=== PATIENT | female | born 1950 | race Caucasian/White ===

== ENCOUNTER 2020-08-15 20:36 | Inpatient (IN) ==
[2020-08-15] MEDS ORDERED: SODIUM CHLORIDE 0.9% 500 ML IV STA (21:01)
[2020-08-15] MEDS ORDERED: ONDANSETRON 4 MG/2 ML VIAL IV STA (21:01)
[2020-08-15] MEDS ORDERED: HYDROmorphone 2 MG/1 ML VIAL IV ONE (21:03)
[2020-08-15] MEDS ORDERED: KETOROLAC 30 MG/1 ML VIAL IV STA (21:04)
[2020-08-15 21:24] LABS: Basophils # 0.1 10*3/uL (0.0-0.2); Basophils % 0.5 % (0.0-0.8); Eosinophils # 0.1 10*3/uL (0.0-0.87); Eosinophils % 1.4 % (0.00-10.9); Hemoglobin 9.8 GM/DL (12.0-16.0); Immature Granulocytes % 0.5 %; Immature Granulocytes Absolute 0.05 #; Lymphocytes # 2.2 10*3/uL (1.4-4.0); Lymphocytes % 24.1 % (21.3-54.2); Mean Corpuscular HGB Conc 32.7 GM/DL (32-36); Mean Platelet Volume 9.5 FL (9.6-12.0); Monocytes % 13.4 % (1.7-12.7); Neutrophils % 60.1 % (38.7-73.9); Platelet Count 55 T/CUMM (130-400); Red Blood Count 3.45 MC/CUMM (3.8-5.5); Red Cell Distribution Width 15.9 % (9.3-17.3); White Blood Count 9.3 T/CUMM (4-12)
[2020-08-15 22:04] LABS: Bacteria,Urine Occasional /HPF (Few); Bilirubin,Urine Negative (Negative); Blood, Urine Large mg/dL (Negative); Glucose,Urine (UA) >=500 mg/dL (Negative); Ketones,Urine Negative (Negative); Mucus,Urine Moderate /LPF (Occasional); Nitrite,Urine Negative (Negative); Protein,Urine 30 MG/DL; RBC,Urine 1471 /HPF (0-4); Squamous Epithelial Cell,Urine Occasional /HPF (0-10); Urine Appearance Slightly Hazy (Clear); Urine Color Amber (Yellow); Urine Specific Gravity 1.017 (1.001-1.035)
[2020-08-15 22:05] LABS: Alanine Aminotransferase 35 U/L (13-56); Albumin 2.8 G/DL (3.4-5.0); Alkaline Phosphatase 95 U/L (45-117); Amylase 72 U/L (25-115); Aspartate Amino Transferase 85 U/L (0-37); Blood Urea Nitrogen 14 MG/DL (7-18); Calcium 8.4 MG/DL (8.5-10.1); Carbon Dioxide 18 MMOL/L (21-32); Estimated Glom Filtration Rate 56 ML/MIN; Glucose 88 MG/DL (74-106); Osmolality,Calculated 263.5 MOS/KG (273-304); Potassium 4.6 MMOL/L (3.5-5.1); Sodium 132 MMOL/L (136-145)
[2020-08-15] MEDS ORDERED: cefTRIAXone 2,000 MG in SODIUM CHLORIDE 0.9% 100 ML IV STA (23:18)
[2020-08-15] MEDS: SODIUM CHLORIDE 0.9% 1,000 ML IV SCH (23:46)
[2020-08-15] MEDS ORDERED: LACTULOSE 20 GM/30 ML UDCUP PO PRN (23:53)
[2020-08-15] MEDS ORDERED: GLUCAGON 1 MG VIAL IM PRN (23:53)
[2020-08-15] MEDS ORDERED: DEXTROSE 50% 25 GM/50 ML VIAL IV PRN (23:53)
[2020-08-15] MEDS ORDERED: MORPHINE 4 MG/1 ML VIAL IV PRN (23:53)
[2020-08-16] MEDS ORDERED: DEXTROSE 50% 25 GM/50 ML VIAL IV PRN (00:25)
[2020-08-16] MEDS: ONDANSETRON 4 MG/2 ML VIAL IV PRN ×2 (02:18→08:22)
[2020-08-16 02:45] LABS: Basophils # 0.1 10*3/uL (0.0-0.2); Basophils % 0.7 % (0.0-0.8); Eosinophils # 0.1 10*3/uL (0.0-0.87); Hematocrit 30.7 VOL% (35.7-47.0); Hemoglobin 10.3 GM/DL (12.0-16.0); Immature Granulocytes % 0.5 %; Immature Granulocytes Absolute 0.05 #; Lymphocytes # 1.7 10*3/uL (1.4-4.0); Lymphocytes % 16.5 % (21.3-54.2); Mean Corpuscular HGB Conc 33.6 GM/DL (32-36); Mean Platelet Volume 9.8 FL (9.6-12.0); Monocytes % 12.7 % (1.7-12.7); Neutrophils % 68.6 % (38.7-73.9); Platelet Count 111 T/CUMM (130-400); Red Blood Count 3.53 MC/CUMM (3.8-5.5); Red Cell Distribution Width 15.9 % (9.3-17.3); White Blood Count 10.2 T/CUMM (4-12)
[2020-08-16 02:58] LABS: INR 1.3; PT Patient Result 14.2 SECS (10.5-12.0); Partial Thromboplastin Time 30.2 SECS (23.9-33.8)
[2020-08-16 03:13] LABS: Calcium 8.5 MG/DL (8.5-10.1); Osmolality,Calculated 263.7 MOS/KG (273-304); Potassium 4.5 MMOL/L (3.5-5.1)
[2020-08-16] MEDS: INSULIN LISPRO 100 UNIT/ML SUBCUT SCH ×4 (08:03→20:27)
[2020-08-16] MEDS: cefTRIAXone 1,000 MG in SODIUM CHLORIDE 0.9% 100 ML IV SCH (08:21)
[2020-08-16] MEDS: SPIRONOLACTONE 100 MG TABLET PO SCH (08:21)
[2020-08-16] MEDS ORDERED: PANTOPRAZOLE 40 MG TABLET PO SCH (09:00)
[2020-08-16] MEDS ORDERED: FUROSEMIDE 40 MG TABLET PO SCH (09:00)
[2020-08-16] MEDS: SODIUM CHLORIDE 0.9% 1,000 ML IV SCH ×2 (09:43→21:20)
[2020-08-16] MEDS: PROMETHAZINE 25 MG/1 ML VIAL IM PRN (11:08)
[2020-08-16] MEDS ORDERED: MORPHINE 2 MG/1 ML SYRINGE IV PRN (14:04)
[2020-08-16] MEDS: PANTOPRAZOLE 40 MG TABLET PO SCH (16:47)
[2020-08-17] MEDS: SODIUM CHLORIDE 0.9% 1,000 ML IV SCH ×2 (06:55→21:11)
[2020-08-17 07:16] LABS: Osmolality,Calculated 276.5 MOS/KG (273-304); Potassium 3.8 MMOL/L (3.5-5.1)
[2020-08-17] MEDS: INSULIN LISPRO 100 UNIT/ML SUBCUT SCH ×4 (08:09→21:14)
[2020-08-17] MEDS: SPIRONOLACTONE 100 MG TABLET PO SCH (08:55)
[2020-08-17] MEDS: PANTOPRAZOLE 40 MG TABLET PO SCH ×2 (08:55→17:09)
[2020-08-17] MEDS: cefTRIAXone 1,000 MG in SODIUM CHLORIDE 0.9% 100 ML IV SCH (08:59)
[2020-08-17] MEDS: ONDANSETRON 4 MG/2 ML VIAL IV PRN ×2 (09:02→21:15)
[2020-08-17] MEDS: METOCLOPRAMIDE 10 MG/10 ML UDCUP PO SCH ×2 (13:30→17:09)
[2020-08-17] MEDS: PROMETHAZINE 25 MG/1 ML VIAL IM PRN (13:40)
[2020-08-17] MEDS: LACTULOSE 20 GM/30 ML UDCUP PO SCH (21:11)
[2020-08-18] MEDS: ONDANSETRON 4 MG/2 ML VIAL IV PRN (05:05)
[2020-08-18 05:09] LABS: Basophils # 0.1 10*3/uL (0.0-0.2); Basophils % 1.2 % (0.0-0.8); Eosinophils # 0.3 10*3/uL (0.0-0.87); Eosinophils % 2.6 % (0.00-10.9); Hematocrit 31.4 VOL% (35.7-47.0); Hemoglobin 10.1 GM/DL (12.0-16.0); Immature Granulocytes % 0.4 %; Immature Granulocytes Absolute 0.04 #; Lymphocytes % 29.1 % (21.3-54.2); Mean Corpuscular HGB Conc 32.2 GM/DL (32-36); Mean Corpuscular Volume 89.2 FL (87-102); Mean Platelet Volume 9.3 FL (9.6-12.0); Monocytes % 13.5 % (1.7-12.7); Neutrophils % 53.2 % (38.7-73.9); Platelet Count 151 T/CUMM (130-400); Red Blood Count 3.52 MC/CUMM (3.8-5.5); Red Cell Distribution Width 16.2 % (9.3-17.3); White Blood Count 10.2 T/CUMM (4-12)
[2020-08-18 05:34] LABS: Calcium 8.2 MG/DL (8.5-10.1); Osmolality,Calculated 278.4 MOS/KG (273-304); Potassium 4.1 MMOL/L (3.5-5.1)
[2020-08-18] MEDS: SODIUM CHLORIDE 0.9% 1,000 ML IV SCH (06:10)
[2020-08-18 07:44] VITALS: BP 117/39
[2020-08-18] MEDS: INSULIN LISPRO 100 UNIT/ML SUBCUT SCH (07:57)
[2020-08-18] MEDS: PANTOPRAZOLE 40 MG TABLET PO SCH (08:38)
[2020-08-18] MEDS: SPIRONOLACTONE 100 MG TABLET PO SCH (08:38)
[2020-08-18] MEDS: LACTULOSE 20 GM/30 ML UDCUP PO SCH (08:39)
[2020-08-18] MEDS ORDERED: CEFUROXIME 500 MG TABLET PO SCH (09:00)
[2020-08-18] MEDS ORDERED: LIDOCAINE 5% PATCH TRANSDERM SCH (10:30)
== END 2020-08-18 10:15 | disposition home or self-care (01) | DRG 694 ==
LOC: N.ED 20:36 → N.EDINP 23:53 → N.3E 08-16 01:15
PROVIDERS: ADMIT Internal Medicine; ATTEND Internal Medicine

== ENCOUNTER 2020-09-20 19:25 | Observation (INO) ==
[2020-09-20 19:58] LABS: Basophils % 0.6 % (0.0-0.8); Eosinophils # 0.1 10*3/uL (0.0-0.87); Eosinophils % 1.2 % (0.00-10.9); Hematocrit 31.7 VOL% (35.7-47.0); Hemoglobin 10.2 GM/DL (12.0-16.0); Immature Granulocytes % 0.4 %; Immature Granulocytes Absolute 0.03 #; Lymphocytes # 1.4 10*3/uL (1.4-4.0); Lymphocytes % 19.1 % (21.3-54.2); Mean Corpuscular HGB Conc 32.2 GM/DL (32-36); Mean Corpuscular Volume 87.8 FL (87-102); Mean Platelet Volume 8.7 FL (9.6-12.0); Monocytes % 12.4 % (1.7-12.7); Neutrophils % 66.3 % (38.7-73.9); Platelet Count 122 T/CUMM (130-400); Red Blood Count 3.61 MC/CUMM (3.8-5.5); Red Cell Distribution Width 15.3 % (9.3-17.3); White Blood Count 7.2 T/CUMM (4-12)
[2020-09-20 20:10] LABS: INR 1.3; PT Patient Result 14.6 SECS (10.5-12.0); Partial Thromboplastin Time 28.5 SECS (23.9-33.8)
[2020-09-20 20:25] LABS: Calcium 8.4 MG/DL (8.5-10.1); Osmolality,Calculated 261.8 MOS/KG (273-304); Potassium 2.8 MMOL/L (3.5-5.1); Total Protein 7.1 G/DL (6.4-8.2)
[2020-09-21] MEDS ORDERED: ONDANSETRON 4 MG/2 ML VIAL ONE (05:15)
[2020-09-21] MEDS ORDERED: ONDANSETRON 4 MG/2 ML VIAL IV STA (05:15)
[2020-09-21] MEDS ORDERED: ALBUTEROL/IPRATROPIUM 3 ML NEB RESP TX STA (05:31)
[2020-09-21] MEDS ORDERED: DEXTROSE 50% 25 GM/50 ML VIAL IV PRN (05:40)
[2020-09-21] MEDS ORDERED: GLUCAGON 1 MG VIAL IM PRN (05:40)
[2020-09-21] MEDS ORDERED: ONDANSETRON 4 MG/2 ML VIAL IV PRN (05:42)
[2020-09-21] MEDS ORDERED: traMADol 50 MG TABLET PO PRN (05:46)
[2020-09-21] MEDS ORDERED: MAGNESIUM SULF RIDER 4 GM/100 ML PREMIX IV PRN (05:49)
[2020-09-21] MEDS ORDERED: POTASSIUM CHLORIDE 20 MEQ TABLET PO PRN (05:49)
[2020-09-21] MEDS ORDERED: MAGNESIUM SULF RIDER 2 GM/50 ML PREMIX IV PRN (05:49)
[2020-09-21] MEDS ORDERED: hydrOXYzine HCL 10 MG TABLET PO PRN (05:55)
[2020-09-21] MEDS ORDERED: LOPERAMIDE 2 MG CAPSULE PO PRN (05:56)
[2020-09-21] MEDS ORDERED: LACTULOSE 20 GM/30 ML UDCUP PO PRN (05:56)
[2020-09-21] MEDS: POTASSIUM BICARB EFFERVESCENT 20 MEQ TAB.EFF PO PRN ×2 (06:21→09:17)
[2020-09-21 06:56] LABS: Basophils # 0.1 10*3/uL (0.0-0.2); Basophils % 0.8 % (0.0-0.8); Eosinophils # 0.2 10*3/uL (0.0-0.87); Eosinophils % 1.9 % (0.00-10.9); Hematocrit 28.5 VOL% (35.7-47.0); Hemoglobin 9.4 GM/DL (12.0-16.0); Immature Granulocytes % 0.5 %; Immature Granulocytes Absolute 0.04 #; Lymphocytes % 24.8 % (21.3-54.2); Mean Corpuscular Volume 86.6 FL (87-102); Mean Platelet Volume 9.2 FL (9.6-12.0); Monocytes % 18.2 % (1.7-12.7); Neutrophils % 53.8 % (38.7-73.9); Platelet Count 102 T/CUMM (130-400); Red Blood Count 3.29 MC/CUMM (3.8-5.5); Red Cell Distribution Width 15.2 % (9.3-17.3); White Blood Count 7.9 T/CUMM (4-12)
[2020-09-21] MEDS ORDERED: ALBUTEROL/IPRATROPIUM 3 ML NEB RESP TX SCH (07:00)
[2020-09-21 07:21] LABS: Hypochromasia 1+; Lymphocytes 24 % (20-55); Microcytosis 1+; Platelet Estimate Decreased; Segmented Neutrophils 63 % (50-85); Total Cells Counted 100
[2020-09-21 07:24] LABS: Albumin 2.7 G/DL (3.4-5.0); Bilirubin,Total 3.2 MG/DL (0.20-1.00); Calcium 8.6 MG/DL (8.5-10.1); Osmolality,Calculated 266.2 MOS/KG (273-304); Total Protein 6.7 G/DL (6.4-8.2)
[2020-09-21] MEDS: INSULIN LISPRO 100 UNIT/ML SUBCUT SCH ×4 (08:24→21:23)
[2020-09-21] MEDS ORDERED: SPIRONOLACTONE 50 MG TABLET PO SCH (09:00)
[2020-09-21] MEDS: FUROSEMIDE 40 MG TABLET PO SCH (09:17)
[2020-09-21] MEDS: TAMSULOSIN 0.4 MG CAPSULE PO SCH (09:17)
[2020-09-21] MEDS: PANTOPRAZOLE 40 MG TABLET PO SCH ×2 (09:17→21:22)
[2020-09-21] MEDS: RIFAXIMIN 550 MG TABLET PO SCH ×2 (09:33→21:22)
[2020-09-21 11:08] LABS: Lymphocytes,Pleural Fluid 76 %; Monocytes,Pleural Fluid 4 %; Neutrophils,Pleural Fluid 20 %; RBC,Pleural Fluid 548 T/CUMM
[2020-09-21 11:25] LABS: Glucose,Pleural Fluid 118 MG/DL
[2020-09-21] MEDS: SPIRONOLACTONE 100 MG TABLET PO SCH (21:22)
[2020-09-21] MEDS: LACTULOSE 20 GM/30 ML UDCUP PO SCH (21:23)
[2020-09-22 06:09] LABS: Basophils % 0.5 % (0.0-0.8); Eosinophils # 0.1 10*3/uL (0.0-0.87); Eosinophils % 1.4 % (0.00-10.9); Hematocrit 27.7 VOL% (35.7-47.0); Hemoglobin 9.1 GM/DL (12.0-16.0); Immature Granulocytes % 0.5 %; Immature Granulocytes Absolute 0.04 #; Lymphocytes # 1.8 10*3/uL (1.4-4.0); Lymphocytes % 22.8 % (21.3-54.2); Mean Corpuscular HGB Conc 32.9 GM/DL (32-36); Mean Platelet Volume 8.7 FL (9.6-12.0); Monocytes % 13.5 % (1.7-12.7); Neutrophils % 61.3 % (38.7-73.9); Platelet Count 101 T/CUMM (130-400); Red Blood Count 3.22 MC/CUMM (3.8-5.5); Red Cell Distribution Width 15.3 % (9.3-17.3); White Blood Count 7.7 T/CUMM (4-12)
[2020-09-22 06:28] LABS: Albumin 2.5 G/DL (3.4-5.0); Bilirubin,Total 2.8 MG/DL (0.20-1.00); Calcium 8.2 MG/DL (8.5-10.1); Osmolality,Calculated 272.7 MOS/KG (273-304); Potassium 3.5 MMOL/L (3.5-5.1); Total Protein 6.1 G/DL (6.4-8.2)
[2020-09-22] MEDS: INSULIN LISPRO 100 UNIT/ML SUBCUT SCH (08:29)
[2020-09-22] MEDS: SPIRONOLACTONE 100 MG TABLET PO SCH (09:30)
[2020-09-22] MEDS: TAMSULOSIN 0.4 MG CAPSULE PO SCH (09:30)
[2020-09-22] MEDS: PANTOPRAZOLE 40 MG TABLET PO SCH (09:30)
[2020-09-22] MEDS: FUROSEMIDE 40 MG TABLET PO SCH (09:31)
[2020-09-22] MEDS: LACTULOSE 20 GM/30 ML UDCUP PO SCH (09:31)
[2020-09-22] MEDS: RIFAXIMIN 550 MG TABLET PO SCH (09:34)
[2020-09-22 11:50] VITALS: BP 116/44
== END 2020-09-22 12:00 | disposition home or self-care (01) ==
LOC: N.ED 19:25 → N.5E 19:25
PROVIDERS: ADMIT Hospitalist; ATTEND Hospitalist

== ENCOUNTER 2020-10-10 10:59 | Inpatient (IN) ==
[2020-10-10 11:42] LABS: Basophils # 0.1 10*3/uL (0.0-0.2); Basophils % 1.3 % (0.0-0.8); Eosinophils # 0.1 10*3/uL (0.0-0.87); Eosinophils % 0.7 % (0.00-10.9); Hematocrit 33.1 VOL% (35.7-47.0); Hemoglobin 10.4 GM/DL (12.0-16.0); Immature Granulocytes % 0.6 %; Immature Granulocytes Absolute 0.04 #; Lymphocytes # 1.4 10*3/uL (1.4-4.0); Lymphocytes % 19.2 % (21.3-54.2); Mean Corpuscular HGB Conc 31.4 GM/DL (32-36); Mean Corpuscular Volume 87.6 FL (87-102); Mean Platelet Volume 9.8 FL (9.6-12.0); Monocytes % 12.8 % (1.7-12.7); Neutrophils % 65.4 % (38.7-73.9); Platelet Count 147 T/CUMM (130-400); Red Blood Count 3.78 MC/CUMM (3.8-5.5); Red Cell Distribution Width 15.8 % (9.3-17.3); White Blood Count 7.2 T/CUMM (4-12)
[2020-10-10 12:41] LABS: Calcium 8.8 MG/DL (8.5-10.1); Osmolality,Calculated 263.5 MOS/KG (273-304); Potassium 4.2 MMOL/L (3.5-5.1); Total Protein 7.1 G/DL (6.4-8.2)
[2020-10-10 16:15] LABS: INR 1.4; PT Patient Result 15.2 SECS (10.5-12.0); Partial Thromboplastin Time 31.3 SECS (23.9-33.8)
[2020-10-10 16:50] LABS: Amylase,Body Fluid 21 U/L; Glucose,Pleural Fluid 96 MG/DL; LDH,Body Fluid 116 U/L; Triglycerides,Body Fluid 29 MG/DL
[2020-10-10] MEDS ORDERED: GLUCAGON 1 MG VIAL IM PRN (17:07)
[2020-10-10] MEDS ORDERED: DEXTROSE 50% 25 GM/50 ML VIAL IV PRN (17:07)
[2020-10-10 17:56] LABS: Lymphocytes,Pleural Fluid 81 %; Monocytes,Pleural Fluid 9 %; Neutrophils,Pleural Fluid 10 %; RBC,Pleural Fluid 869 T/CUMM
[2020-10-10] MEDS ORDERED: SODIUM CHLORIDE 0.9% 500 ML IV STA ×2 (18:14→18:50)
[2020-10-10] MEDS: LACTULOSE 20 GM/30 ML UDCUP PO SCH (22:59)
[2020-10-10] MEDS: RIFAXIMIN 550 MG TABLET PO SCH (23:17)
[2020-10-10] MEDS: SPIRONOLACTONE 100 MG TABLET PO SCH (23:19)
[2020-10-11 06:23] LABS: Basophils # 0.1 10*3/uL (0.0-0.2); Eosinophils # 0.2 10*3/uL (0.0-0.87); Eosinophils % 2.5 % (0.00-10.9); Hematocrit 31.7 VOL% (35.7-47.0); Hemoglobin 10.2 GM/DL (12.0-16.0); Immature Granulocytes % 0.6 %; Immature Granulocytes Absolute 0.05 #; Lymphocytes # 2.2 10*3/uL (1.4-4.0); Lymphocytes % 27.9 % (21.3-54.2); Mean Corpuscular HGB Conc 32.2 GM/DL (32-36); Mean Corpuscular Volume 87.1 FL (87-102); Mean Platelet Volume 9.6 FL (9.6-12.0); Monocytes % 12.3 % (1.7-12.7); Neutrophils % 55.7 % (38.7-73.9); Platelet Count 146 T/CUMM (130-400); Red Blood Count 3.64 MC/CUMM (3.8-5.5); Red Cell Distribution Width 15.9 % (9.3-17.3)
[2020-10-11 06:42] LABS: Albumin 2.7 G/DL (3.4-5.0); Bilirubin,Total 3.4 MG/DL (0.20-1.00); Calcium 8.5 MG/DL (8.5-10.1); Osmolality,Calculated 264.2 MOS/KG (273-304); Potassium 3.7 MMOL/L (3.5-5.1); Total Protein 6.5 G/DL (6.4-8.2)
[2020-10-11] MEDS: RIFAXIMIN 550 MG TABLET PO SCH ×2 (08:23→21:13)
[2020-10-11] MEDS ORDERED: FUROSEMIDE 40 MG TABLET PO SCH (09:00)
[2020-10-11] MEDS: LACTULOSE 20 GM/30 ML UDCUP PO SCH (09:19)
[2020-10-11] MEDS: SPIRONOLACTONE 100 MG TABLET PO SCH ×2 (11:32→21:10)
[2020-10-11] MEDS ORDERED: LACTULOSE 20 GM/30 ML UDCUP PO PRN (12:21)
[2020-10-11] MEDS ORDERED: LOPERAMIDE 2 MG CAPSULE PO PRN (12:22)
[2020-10-11] MEDS: FUROSEMIDE 40 MG TABLET PO SCH (18:00)
[2020-10-11] MEDS ORDERED: ALBUMIN 25% 50 GM/200 ML VIAL IV ONE (18:30)
[2020-10-12 05:58] LABS: Basophils # 0.1 10*3/uL (0.0-0.2); Eosinophils # 0.2 10*3/uL (0.0-0.87); Eosinophils % 2.9 % (0.00-10.9); Hemoglobin 8.9 GM/DL (12.0-16.0); Immature Granulocytes % 0.3 %; Immature Granulocytes Absolute 0.02 #; Lymphocytes # 1.9 10*3/uL (1.4-4.0); Lymphocytes % 29.7 % (21.3-54.2); Mean Corpuscular HGB Conc 31.8 GM/DL (32-36); Mean Platelet Volume 9.3 FL (9.6-12.0); Monocytes % 16.4 % (1.7-12.7); Neutrophils % 49.7 % (38.7-73.9); Platelet Count 121 T/CUMM (130-400); Red Blood Count 3.22 MC/CUMM (3.8-5.5); Red Cell Distribution Width 15.9 % (9.3-17.3); White Blood Count 6.3 T/CUMM (4-12)
[2020-10-12 06:19] LABS: Albumin 2.6 G/DL (3.4-5.0); Bilirubin,Total 2.2 MG/DL (0.20-1.00); Calcium 8.2 MG/DL (8.5-10.1); Osmolality,Calculated 272.7 MOS/KG (273-304); Potassium 3.7 MMOL/L (3.5-5.1); Total Protein 5.9 G/DL (6.4-8.2)
[2020-10-12 06:29] LABS: Eosinophils 2 % (0-10); Hypochromasia 1+; Lymphocytes 31 % (20-55); Segmented Neutrophils 50 % (50-85); Total Cells Counted 100
[2020-10-12 06:30] LABS: Atypical Lymphocytes Few; Microcytosis 1+; Ovalocytes Slight; Platelet Estimate Adequate
[2020-10-12] MEDS ORDERED: FUROSEMIDE 40 MG TABLET PO SCH (09:00)
[2020-10-12] MEDS ORDERED: SPIRONOLACTONE 100 MG TABLET PO SCH (09:00)
[2020-10-12] MEDS: TAMSULOSIN 0.4 MG CAPSULE PO SCH (09:14)
[2020-10-12] MEDS: SPIRONOLACTONE 100 MG TABLET PO SCH ×2 (09:14→21:05)
[2020-10-12] MEDS: FUROSEMIDE 40 MG TABLET PO SCH ×2 (09:14→17:46)
[2020-10-12] MEDS: RIFAXIMIN 550 MG TABLET PO SCH ×2 (09:15→21:03)
[2020-10-12] MEDS: ONDANSETRON 4 MG/2 ML VIAL IV PRN ×3 (09:28→21:15)
[2020-10-13 06:31] LABS: Basophils # 0.1 10*3/uL (0.0-0.2); Eosinophils # 0.1 10*3/uL (0.0-0.87); Eosinophils % 2.2 % (0.00-10.9); Hematocrit 27.7 VOL% (35.7-47.0); Hemoglobin 9.1 GM/DL (12.0-16.0); Immature Granulocytes % 0.5 %; Immature Granulocytes Absolute 0.03 #; Lymphocytes # 1.7 10*3/uL (1.4-4.0); Lymphocytes % 26.6 % (21.3-54.2); Mean Corpuscular HGB Conc 32.9 GM/DL (32-36); Mean Platelet Volume 9.4 FL (9.6-12.0); Monocytes % 15.9 % (1.7-12.7); Neutrophils % 53.8 % (38.7-73.9); Platelet Count 123 T/CUMM (130-400); Red Blood Count 3.26 MC/CUMM (3.8-5.5); Red Cell Distribution Width 15.5 % (9.3-17.3); White Blood Count 6.3 T/CUMM (4-12)
[2020-10-13 06:54] LABS: Eosinophils 1 % (0-10); Hypochromasia 1+; Lymphocytes 17 % (20-55); Microcytosis 1+; Platelet Estimate Normal; Segmented Neutrophils 67 % (50-85); Total Cells Counted 100
[2020-10-13 07:04] LABS: Calcium 8.3 MG/DL (8.5-10.1); Potassium 3.4 MMOL/L (3.5-5.1)
[2020-10-13] MEDS: RIFAXIMIN 550 MG TABLET PO SCH (08:27)
[2020-10-13] MEDS: TAMSULOSIN 0.4 MG CAPSULE PO SCH (08:27)
[2020-10-13] MEDS: FUROSEMIDE 40 MG TABLET PO SCH (08:28)
[2020-10-13] MEDS: SPIRONOLACTONE 100 MG TABLET PO SCH (08:28)
[2020-10-13] MEDS: ONDANSETRON 4 MG/2 ML VIAL IV PRN (08:57)
[2020-10-13] MEDS ORDERED: POTASSIUM CHLORIDE 20 MEQ TABLET PO ONE (11:00)
[2020-10-13 16:32] VITALS: BP 106/77
== END 2020-10-13 16:48 | disposition home health service (06) | DRG 442 ==
LOC: N.ED 10:59 → N.EDINP 10:59 → SUATTDRO 17:01 → N.EDINP 20:27 → N.5E 22:26
PROVIDERS: ADMIT Internal Medicine; ATTEND Internal Medicine
PROC: IRTHORA (2020-10-10 15:30)

== ENCOUNTER 2021-02-15 20:08 | Inpatient (IN) ==
[2021-02-15] MEDS ORDERED: methylPREDNISolone SOD SUC 125 MG/2 ML VIAL IV STA (20:46)
[2021-02-15] MEDS ORDERED: ALBUTEROL/IPRATROPIUM 3 ML NEB RESP TX STA (20:46)
[2021-02-15] MEDS ORDERED: FUROSEMIDE 100 MG/10 ML VIAL IV STA (20:46)
[2021-02-15] MEDS ORDERED: ONDANSETRON 4 MG/2 ML VIAL IV STA (20:46)
[2021-02-15 21:17] LABS: Basophils # 0.1 10*3/uL (0.0-0.2); Basophils % 0.8 % (0.0-0.8); Eosinophils # 0.1 10*3/uL (0.0-0.87); Eosinophils % 1.2 % (0.00-10.9); Hematocrit 33.2 VOL% (35.7-47.0); Hemoglobin 10.6 GM/DL (12.0-16.0); Immature Granulocytes % 0.7 %; Immature Granulocytes Absolute 0.07 #; Lymphocytes # 1.9 10*3/uL (1.4-4.0); Lymphocytes % 17.5 % (21.3-54.2); Mean Corpuscular HGB Conc 31.9 GM/DL (32-36); Mean Corpuscular Volume 91.2 FL (87-102); Mean Platelet Volume 8.8 FL (9.6-12.0); Monocytes % 17.8 % (1.7-12.7); Platelet Count 131 T/CUMM (130-400); Red Blood Count 3.64 MC/CUMM (3.8-5.5); Red Cell Distribution Width 15.5 % (9.3-17.3); White Blood Count 10.6 T/CUMM (4-12)
[2021-02-15 21:26] LABS: INR 1.4; PT Patient Result 15.1 SECS (10.5-12.0)
[2021-02-15 21:44] LABS: Burr Cells 1+; Lymphocytes 13 % (20-55); Myelocytes 1 %; Segmented Neutrophils 72 % (50-85); Total Cells Counted 100
[2021-02-15 21:45] LABS: Anisocytosis 1+; Ovalocytes 1+; Platelet Estimate Increased; Polychromasia 1+
[2021-02-15 21:52] LABS: Albumin 2.6 G/DL (3.4-5.0); Bilirubin,Total 2.3 MG/DL (0.20-1.00); Calcium 8.7 MG/DL (8.5-10.1); Osmolality,Calculated 270.1 MOS/KG (273-304); Potassium 4.2 MMOL/L (3.5-5.1)
[2021-02-15 22:09] LABS: Bilirubin,Urine Negative (Negative); Blood, Urine Moderate mg/dL (Negative); Glucose,Urine (UA) >=500 mg/dL (Negative); Hyaline Casts,Urine 1 /LPF (0-3); Ketones,Urine Negative (Negative); Mucus,Urine Occasional /LPF (Occasional); Nitrite,Urine Negative (Negative); Protein,Urine Negative; RBC,Urine 42 /HPF (0-4); Squamous Epithelial Cell,Urine Occasional /HPF (0-10); Urine Appearance CLEAR (Clear); Urine Color Amber (Yellow); Urine Specific Gravity 1.014 (1.001-1.035)
[2021-02-15] MEDS ORDERED: guaiFENesin/DM ER 600-30 MG TABLET PO PRN (23:11)
[2021-02-15] MEDS ORDERED: hydrALAZINE 20 MG/1 ML VIAL IV PRN (23:11)
[2021-02-15] MEDS ORDERED: ACETAMINOPHEN 325 MG TABLET PO PRN (23:11)
[2021-02-15] MEDS ORDERED: GLUCAGON 1 MG VIAL IM PRN ×2 (23:11)
[2021-02-15] MEDS ORDERED: DOCUSATE SODIUM 100 MG CAPSULE PO PRN (23:11)
[2021-02-15] MEDS ORDERED: ZALEPLON 5 MG CAPSULE PO PRN (23:11)
[2021-02-15] MEDS ORDERED: NICOTINE 21 MG/24 HR PATCH TRANSDERM PRN (23:11)
[2021-02-15] MEDS ORDERED: DEXTROSE 50% 25 GM/50 ML VIAL IV PRN (23:11)
[2021-02-15] MEDS ORDERED: DEXTROSE 50% 25 GM/50 ML SYRINGE IV PRN (23:11)
[2021-02-15] MEDS ORDERED: diphenhydrAMINE CAP 25 MG CAPSULE PO PRN (23:11)
[2021-02-15 23:55] LABS: INR 1.3; PT Patient Result 14.6 SECS (10.5-12.0)
[2021-02-16 05:17] LABS: Basophils % 0.2 % (0.0-0.8); Hematocrit 31.4 VOL% (35.7-47.0); Hemoglobin 10.2 GM/DL (12.0-16.0); Immature Granulocytes % 0.6 %; Immature Granulocytes Absolute 0.03 #; Lymphocytes # 0.4 10*3/uL (1.4-4.0); Mean Corpuscular HGB Conc 32.5 GM/DL (32-36); Mean Corpuscular Volume 90.2 FL (87-102); Mean Platelet Volume 8.7 FL (9.6-12.0); Monocytes % 2.5 % (1.7-12.7); Neutrophils % 88.7 % (38.7-73.9); Platelet Count 103 T/CUMM (130-400); Red Blood Count 3.48 MC/CUMM (3.8-5.5); Red Cell Distribution Width 15.1 % (9.3-17.3); White Blood Count 4.8 T/CUMM (4-12)
[2021-02-16 05:42] LABS: Calcium 9.1 MG/DL (8.5-10.1); Osmolality,Calculated 270.2 MOS/KG (273-304)
[2021-02-16] MEDS: ALBUTEROL/IPRATROPIUM 3 ML NEB RESP TX SCH ×4 (07:24→20:40)
[2021-02-16] MEDS: INSULIN LISPRO 100 UNIT/ML SUBCUT SCH ×4 (08:24→21:07)
[2021-02-16] MEDS: HEPARIN 5,000 UNIT/1 ML VIAL SUBCUT SCH ×2 (08:25→21:12)
[2021-02-16] MEDS ORDERED: PNEUMOCOCCAL VACCINE (13 VALENT) 0.5 ML SYRINGE IM ONE (09:00)
[2021-02-16] MEDS: PANTOPRAZOLE 40 MG TABLET PO SCH (12:56)
[2021-02-16] MEDS: SPIRONOLACTONE 100 MG TABLET PO SCH (12:56)
[2021-02-16] MEDS: FUROSEMIDE 40 MG TABLET PO SCH (15:32)
[2021-02-16] MEDS: MIDODRINE 5 MG TABLET PO SCH ×2 (15:32→21:07)
[2021-02-16] MEDS: LACTULOSE 20 GM/30 ML UDCUP PO SCH (21:07)
[2021-02-16] MEDS: ESCITALOPRAM 10 MG TABLET PO SCH (21:07)
[2021-02-16] MEDS: RIFAXIMIN 550 MG TABLET PO SCH (21:08)
[2021-02-17] MEDS: ALBUTEROL/IPRATROPIUM 3 ML NEB RESP TX SCH ×4 (01:25→20:48)
[2021-02-17] MEDS: ONDANSETRON 4 MG/2 ML VIAL IV PRN ×3 (02:42→20:50)
[2021-02-17 05:34] LABS: Osmolality,Calculated 271.4 MOS/KG (273-304); Potassium 3.7 MMOL/L (3.5-5.1)
[2021-02-17] MEDS: INSULIN LISPRO 100 UNIT/ML SUBCUT SCH ×4 (08:49→22:04)
[2021-02-17] MEDS: POTASSIUM CHLORIDE 20 MEQ TABLET PO SCH (09:26)
[2021-02-17] MEDS: MULTIVITAMIN (CENTRUM) TABLET PO SCH (09:27)
[2021-02-17] MEDS: CHOLECALCIFEROL 1,000 UNIT TABLET PO SCH (09:27)
[2021-02-17] MEDS: RIFAXIMIN 550 MG TABLET PO SCH ×2 (09:27→20:38)
[2021-02-17] MEDS: buPROPion 75 MG TABLET PO SCH (09:27)
[2021-02-17] MEDS: SPIRONOLACTONE 100 MG TABLET PO SCH (09:27)
[2021-02-17] MEDS: FUROSEMIDE 40 MG TABLET PO SCH ×2 (09:27→16:34)
[2021-02-17] MEDS: PANTOPRAZOLE 40 MG TABLET PO SCH (09:28)
[2021-02-17] MEDS: HEPARIN 5,000 UNIT/1 ML VIAL SUBCUT SCH ×2 (09:29→20:38)
[2021-02-17] MEDS: LACTULOSE 20 GM/30 ML UDCUP PO SCH ×2 (09:31→22:03)
[2021-02-17] MEDS: MIDODRINE 5 MG TABLET PO SCH ×3 (09:32→20:38)
[2021-02-17] MEDS ORDERED: PHENOL 1.4% THROAT SPRAY 177 ML BOTTLE PO PRN (10:43)
[2021-02-17] MEDS: ESCITALOPRAM 10 MG TABLET PO SCH (20:38)
[2021-02-18] MEDS: ALBUTEROL/IPRATROPIUM 3 ML NEB RESP TX SCH ×2 (01:48→07:22)
[2021-02-18] MEDS: ONDANSETRON 4 MG/2 ML VIAL IV PRN ×2 (03:34→09:57)
[2021-02-18 06:13] LABS: Calcium 8.6 MG/DL (8.5-10.1); Osmolality,Calculated 270.2 MOS/KG (273-304); Potassium 4.5 MMOL/L (3.5-5.1)
[2021-02-18] MEDS: INSULIN LISPRO 100 UNIT/ML SUBCUT SCH (07:59)
[2021-02-18 08:06] VITALS: BP 103/36
[2021-02-18] MEDS ORDERED: PNEUMOCOCCAL VACCINE (13 VALENT) 0.5 ML SYRINGE IM ONE (09:00)
[2021-02-18] MEDS: MULTIVITAMIN (CENTRUM) TABLET PO SCH (09:13)
[2021-02-18] MEDS: CHOLECALCIFEROL 1,000 UNIT TABLET PO SCH (09:13)
[2021-02-18] MEDS: FUROSEMIDE 40 MG TABLET PO SCH (09:13)
[2021-02-18] MEDS: buPROPion 75 MG TABLET PO SCH (09:13)
[2021-02-18] MEDS: SPIRONOLACTONE 100 MG TABLET PO SCH (09:13)
[2021-02-18] MEDS: MIDODRINE 5 MG TABLET PO SCH (09:14)
[2021-02-18] MEDS: POTASSIUM CHLORIDE 20 MEQ TABLET PO SCH (09:14)
[2021-02-18] MEDS: PANTOPRAZOLE 40 MG TABLET PO SCH (09:14)
[2021-02-18] MEDS: HEPARIN 5,000 UNIT/1 ML VIAL SUBCUT SCH (09:14)
[2021-02-18] MEDS: RIFAXIMIN 550 MG TABLET PO SCH (09:14)
[2021-02-18] MEDS: LACTULOSE 20 GM/30 ML UDCUP PO SCH (09:14)
== END 2021-02-18 11:10 | disposition home health service (06) | DRG 433 ==
LOC: N.ED 20:08 → SUATTDRO 23:11 → N.TELEN 02-16 00:19
PROVIDERS: ADMIT Hospitalist; ATTEND Internal Medicine

== ENCOUNTER 2021-02-28 17:32 | Inpatient (IN) ==
[2021-02-28] MEDS ORDERED: HYDROmorphone 2 MG/1 ML VIAL IV STA (18:32)
[2021-02-28] MEDS ORDERED: SODIUM CHLORIDE 0.9% 500 ML IV STA (18:32)
[2021-02-28] MEDS ORDERED: ONDANSETRON 4 MG/2 ML VIAL IV STA (18:32)
[2021-02-28 18:48] LABS: INR 1.4; PT Patient Result 15.5 SECS (10.5-12.0)
[2021-02-28 19:08] LABS: Alanine Aminotransferase 39 U/L (13-56); Albumin 2.5 G/DL (3.4-5.0); Alkaline Phosphatase 113 U/L (45-117); Aspartate Amino Transferase 58 U/L (0-37); Blood Urea Nitrogen 13 MG/DL (7-18); Calcium 8.5 MG/DL (8.5-10.1); Carbon Dioxide 18 MMOL/L (21-32); Estimated Glom Filtration Rate 43 ML/MIN; Glucose 92 MG/DL (74-106); Osmolality,Calculated 265.4 MOS/KG (273-304); Potassium 3.6 MMOL/L (3.5-5.1); Sodium 133 MMOL/L (136-145); Total Protein 6.7 G/DL (6.4-8.2)
[2021-02-28 20:27] LABS: Basophils # 0.1 10*3/uL (0.0-0.2); Basophils % 0.3 % (0.0-0.8); Hematocrit 30.6 VOL% (35.7-47.0); Hemoglobin 10.2 GM/DL (12.0-16.0); Immature Granulocytes % 1.1 %; Immature Granulocytes Absolute 0.24 #; Lymphocytes # 1.1 10*3/uL (1.4-4.0); Lymphocytes % 4.7 % (21.3-54.2); Mean Corpuscular HGB Conc 33.3 GM/DL (32-36); Monocytes % 7.1 % (1.7-12.7); Neutrophils % 86.8 % (38.7-73.9); Platelet Count 141 T/CUMM (130-400); Red Cell Distribution Width 15.9 % (9.3-17.3); White Blood Count 22.4 T/CUMM (4-12)
[2021-02-28] MEDS ORDERED: GLUCAGON 1 MG VIAL IM PRN (20:27)
[2021-02-28] MEDS ORDERED: DEXTROSE 10% 250 ML BAG IV PRN (20:36)
[2021-02-28 20:52] LABS: Band Neutrophils 1 % (0-10); Lymphocytes 2 % (20-55); Platelet Estimate Decreased; Segmented Neutrophils 90 % (50-85); Total Cells Counted 100
[2021-02-28 20:54] LABS: Anisocytosis 1+; Burr Cells 1+; Hypochromia Slight; Microcytosis Slight
[2021-02-28 21:20] LABS: Bacteria,Urine Occasional /HPF (Few); Bilirubin,Urine Negative (Negative); Blood, Urine Negative (Negative); Glucose,Urine (UA) >=500 mg/dL (Negative); Hyaline Casts,Urine 18 /LPF (0-3); Ketones,Urine Negative (Negative); Mucus,Urine Occasional /LPF (Occasional); Nitrite,Urine Negative (Negative); Protein,Urine Negative; RBC,Urine 4 /HPF (0-4); Urine Appearance CLEAR (Clear); Urine Color Yellow (Yellow); Urine Specific Gravity 1.005 (1.001-1.035); Urine Urobilinogen < 2.0 EU/DL (<2.0)
[2021-02-28] MEDS: INSULIN LISPRO 100 UNIT/ML SUBCUT SCH (22:04)
[2021-02-28] MEDS: cefTRIAXone 1,000 MG in SODIUM CHLORIDE 0.9% 100 ML IV SCH (22:04)
[2021-02-28] MEDS: metroNIDAZOLE INJ 500 MG/100 ML PREMIX IV SCH (23:26)
[2021-03-01] MEDS: HYDROmorphone 2 MG/1 ML VIAL IV PRN ×2 (01:43→09:17)
[2021-03-01 05:27] LABS: Basophils # 0.1 10*3/uL (0.0-0.2); Basophils % 0.3 % (0.0-0.8); Eosinophils % 0.1 % (0.00-10.9); Hematocrit 31.3 VOL% (35.7-47.0); Hemoglobin 10.1 GM/DL (12.0-16.0); Immature Granulocytes % 1.2 %; Immature Granulocytes Absolute 0.27 #; Lymphocytes # 1.3 10*3/uL (1.4-4.0); Lymphocytes % 5.9 % (21.3-54.2); Mean Corpuscular HGB Conc 32.3 GM/DL (32-36); Mean Corpuscular Volume 91.8 FL (87-102); Mean Platelet Volume 9.1 FL (9.6-12.0); Monocytes % 9.8 % (1.7-12.7); Neutrophils % 82.7 % (38.7-73.9); Platelet Count 132 T/CUMM (130-400); Red Blood Count 3.41 MC/CUMM (3.8-5.5); White Blood Count 22.4 T/CUMM (4-12)
[2021-03-01 05:54] LABS: Albumin 2.5 G/DL (3.4-5.0); Bilirubin,Total 4.6 MG/DL (0.20-1.00); Calcium 8.7 MG/DL (8.5-10.1); Osmolality,Calculated 267.4 MOS/KG (273-304); Potassium 4.2 MMOL/L (3.5-5.1); Total Protein 6.8 G/DL (6.4-8.2)
[2021-03-01 06:04] LABS: Band Neutrophils 1 % (0-10); Hypochromia 1+; Lymphocytes 8 % (20-55); Microcytosis 1+; Segmented Neutrophils 83 % (50-85); Total Cells Counted 100
[2021-03-01 06:05] LABS: Ovalocytes Few; Platelet Estimate Adequate
[2021-03-01] MEDS: INSULIN LISPRO 100 UNIT/ML SUBCUT SCH ×4 (07:06→21:43)
[2021-03-01] MEDS ORDERED: CARBOXYMETHYLCELLULOSE 1% OPH SOLN BOTH EYES PRN (08:15)
[2021-03-01] MEDS: FUROSEMIDE 40 MG TABLET PO SCH (09:00)
[2021-03-01] MEDS: SPIRONOLACTONE 100 MG TABLET PO SCH (09:00)
[2021-03-01] MEDS: LACTATED RINGERS 1,000 ML IV SCH ×2 (09:00→20:38)
[2021-03-01] MEDS: metroNIDAZOLE INJ 500 MG/100 ML PREMIX IV SCH ×3 (09:00→23:53)
[2021-03-01] MEDS: CHOLECALCIFEROL 1,000 UNIT TABLET PO SCH (09:01)
[2021-03-01] MEDS: buPROPion 75 MG TABLET PO SCH (09:01)
[2021-03-01] MEDS: PANTOPRAZOLE 40 MG TABLET PO SCH (09:01)
[2021-03-01] MEDS ORDERED: ACETAMINOPHEN INJ 1,000 MG/100 ML VIAL IV ONE (10:26)
[2021-03-01] MEDS ORDERED: SEVOFLURANE 1 UNIT/15 MINUTE INH ONE ×3 (10:26→11:57)
[2021-03-01] MEDS ORDERED: ROCURONIUM 50 MG/5 ML VIAL IV ONE (10:26)
[2021-03-01] MEDS ORDERED: LIDOCAINE 2% 5 ML VIAL ONE (10:26)
[2021-03-01] MEDS ORDERED: ETOMIDATE 40 MG/20 ML VIAL IV ONE (10:26)
[2021-03-01] MEDS ORDERED: fentaNYL 100 MCG/2 ML VIAL ONE (10:26)
[2021-03-01] MEDS ORDERED: ONDANSETRON 4 MG/2 ML VIAL ONE (10:26)
[2021-03-01] MEDS ORDERED: DEXAMETHASONE 4 MG/1 ML VIAL ONE ×2 (10:26→10:34)
[2021-03-01] MEDS ORDERED: propofoL 200 MG/20 ML VIAL IV ONE (10:27)
[2021-03-01] MEDS ORDERED: DEXMEDETOMIDINE 200 MCG/2 ML VIAL ONE (10:28)
[2021-03-01] MEDS ORDERED: LIDOCAINE 1% 5 ML VIAL ONE (10:34)
[2021-03-01] MEDS ORDERED: BUPIVACAINE MPF 0.25% 30 ML VIAL ONE (10:34)
[2021-03-01 10:53] LABS: Lymphocytes,Pleural Fluid 74 %; Monocytes,Pleural Fluid 11 %; Neutrophils,Pleural Fluid 15 %; RBC,Pleural Fluid 48 T/CUMM
[2021-03-01] MEDS ORDERED: MAGNESIUM HYDROXIDE SUSP 30 ML UDCUP PO PRN (11:22)
[2021-03-01] MEDS ORDERED: HYDROmorphone 2 MG/1 ML VIAL IV PRN (11:23)
[2021-03-01] MEDS ORDERED: TRANEXAMIC ACID 1,000 MG/10 ML VIAL ONE (11:34)
[2021-03-01] MEDS ORDERED: SUCCINYLCHOLINE 200 MG/10 ML VIAL ONE (11:34)
[2021-03-01] MEDS ORDERED: BACITRACIN OINT 0.9 GM PACK TOP ONE (11:35)
[2021-03-01] MEDS ORDERED: NEOSTIGMINE 10 MG/10 ML VIAL ONE (11:46)
[2021-03-01] MEDS ORDERED: GLYCOPYRROLATE 0.4 MG/2 ML VIAL ONE (11:46)
[2021-03-01] MEDS ORDERED: PHENYLEPHRINE 1 MG/10 ML SYRINGE IV ONE (11:58)
[2021-03-01] MEDS ORDERED: SUGAMMADEX 200 MG/2 ML VIAL IV ONE ×2 (12:35→12:36)
[2021-03-01] MEDS ORDERED: TUBERCULIN SKIN TEST 0.1 ML SYRINGE INTRADERM ONE (13:48)
[2021-03-01] MEDS: LACTULOSE 20 GM/30 ML UDCUP PO SCH ×2 (15:45→21:42)
[2021-03-01] MEDS: RIFAXIMIN 550 MG TABLET PO SCH ×2 (15:45→21:45)
[2021-03-01] MEDS: cefTRIAXone 1,000 MG in SODIUM CHLORIDE 0.9% 100 ML IV SCH (20:38)
[2021-03-01] MEDS: DOCUSATE SODIUM 100 MG CAPSULE PO SCH (21:43)
[2021-03-01] MEDS: ESCITALOPRAM 10 MG TABLET PO SCH (21:45)
[2021-03-02] MEDS: LACTATED RINGERS 1,000 ML IV SCH (03:08)
[2021-03-02] MEDS: FONDAPARINUX 2.5 MG/0.5 ML SYRINGE SUBCUT SCH (05:21)
[2021-03-02 07:20] LABS: Basophils % 0.1 % (0.0-0.8); Hematocrit 24.6 VOL% (35.7-47.0); Hemoglobin 8.1 GM/DL (12.0-16.0); Immature Granulocytes % 1.5 %; Lymphocytes # 1.3 10*3/uL (1.4-4.0); Lymphocytes % 6.2 % (21.3-54.2); Mean Corpuscular HGB Conc 32.9 GM/DL (32-36); Mean Corpuscular Volume 91.4 FL (87-102); Mean Platelet Volume 9.4 FL (9.6-12.0); Monocytes % 13.3 % (1.7-12.7); Neutrophils % 78.9 % (38.7-73.9); Platelet Count 98 T/CUMM (130-400); Red Blood Count 2.69 MC/CUMM (3.8-5.5); Red Cell Distribution Width 15.9 % (9.3-17.3); White Blood Count 20.5 T/CUMM (4-12)
[2021-03-02 07:30] LABS: Bilirubin,Total 2.4 MG/DL (0.20-1.00); Calcium 8.4 MG/DL (8.5-10.1); Osmolality,Calculated 271.4 MOS/KG (273-304); Potassium 4.1 MMOL/L (3.5-5.1); Total Protein 5.7 G/DL (6.4-8.2)
[2021-03-02 07:33] LABS: Eosinophils 1 % (0-10); Hypochromia 1+; Lymphocytes 2 % (20-55); Microcytosis 1+; Nucleated Red Blood Cells 1 (0-5); Platelet Estimate Decreased; Segmented Neutrophils 88 % (50-85); Total Cells Counted 100
[2021-03-02] MEDS: oxyCODONE IR 5 MG TABLET PO PRN (08:04)
[2021-03-02] MEDS: INSULIN LISPRO 100 UNIT/ML SUBCUT SCH ×4 (08:12→22:31)
[2021-03-02 08:24] LABS: % Iron Saturation 20.9 % (18-50); Ferritin 116.8 ng/mL (8-252)
[2021-03-02] MEDS: CHOLECALCIFEROL 1,000 UNIT TABLET PO SCH (08:51)
[2021-03-02] MEDS: metroNIDAZOLE INJ 500 MG/100 ML PREMIX IV SCH ×3 (08:52→23:37)
[2021-03-02] MEDS: SPIRONOLACTONE 100 MG TABLET PO SCH (08:52)
[2021-03-02] MEDS: buPROPion 75 MG TABLET PO SCH (08:52)
[2021-03-02] MEDS: DOCUSATE SODIUM 100 MG CAPSULE PO SCH ×2 (08:52→20:31)
[2021-03-02] MEDS: LACTULOSE 20 GM/30 ML UDCUP PO SCH ×2 (08:52→20:31)
[2021-03-02] MEDS: PANTOPRAZOLE 40 MG TABLET PO SCH (08:52)
[2021-03-02] MEDS: FUROSEMIDE 40 MG TABLET PO SCH (08:52)
[2021-03-02] MEDS: RIFAXIMIN 550 MG TABLET PO SCH ×2 (10:00→20:31)
[2021-03-02] MEDS: FERROUS SULFATE 325 MG TABLET PO SCH (16:18)
[2021-03-02] MEDS: ESCITALOPRAM 10 MG TABLET PO SCH (20:31)
[2021-03-02] MEDS: cefTRIAXone 1,000 MG in SODIUM CHLORIDE 0.9% 100 ML IV SCH (21:19)
[2021-03-03] MEDS: ONDANSETRON 4 MG/2 ML VIAL IV PRN (02:01)
[2021-03-03] MEDS: oxyCODONE IR 5 MG TABLET PO PRN ×2 (04:12→09:20)
[2021-03-03 05:09] LABS: Basophils # 0.1 10*3/uL (0.0-0.2); Basophils % 0.3 % (0.0-0.8); Eosinophils # 0.2 10*3/uL (0.0-0.87); Eosinophils % 0.8 % (0.00-10.9); Hematocrit 26.6 VOL% (35.7-47.0); Hemoglobin 8.7 GM/DL (12.0-16.0); Immature Granulocytes % 1.4 %; Immature Granulocytes Absolute 0.33 #; Lymphocytes # 1.9 10*3/uL (1.4-4.0); Lymphocytes % 7.9 % (21.3-54.2); Mean Corpuscular HGB Conc 32.7 GM/DL (32-36); Mean Corpuscular Volume 91.4 FL (87-102); Mean Platelet Volume 8.8 FL (9.6-12.0); Monocytes % 15.2 % (1.7-12.7); Neutrophils % 74.4 % (38.7-73.9); Platelet Count 127 T/CUMM (130-400); Red Blood Count 2.91 MC/CUMM (3.8-5.5); Red Cell Distribution Width 15.9 % (9.3-17.3); White Blood Count 23.4 T/CUMM (4-12)
[2021-03-03] MEDS: FONDAPARINUX 2.5 MG/0.5 ML SYRINGE SUBCUT SCH (05:22)
[2021-03-03 05:41] LABS: Albumin 2.3 G/DL (3.4-5.0); Bilirubin,Total 2.1 MG/DL (0.20-1.00); Calcium 8.3 MG/DL (8.5-10.1); Osmolality,Calculated 259.5 MOS/KG (273-304); Total Protein 6.1 G/DL (6.4-8.2)
[2021-03-03 05:42] LABS: Lymphocytes 4 % (20-55); Segmented Neutrophils 84 % (50-85); Total Cells Counted 100
[2021-03-03 05:43] LABS: Burr Cells Slight; Hypochromia 1+; Microcytosis Slight; Ovalocytes Slight
[2021-03-03] MEDS: CHOLECALCIFEROL 1,000 UNIT TABLET PO SCH (09:19)
[2021-03-03] MEDS: buPROPion 75 MG TABLET PO SCH (09:19)
[2021-03-03] MEDS: LACTULOSE 20 GM/30 ML UDCUP PO SCH ×2 (09:19→20:35)
[2021-03-03] MEDS: RIFAXIMIN 550 MG TABLET PO SCH ×2 (09:19→20:35)
[2021-03-03] MEDS: DOCUSATE SODIUM 100 MG CAPSULE PO SCH ×2 (09:19→20:35)
[2021-03-03] MEDS: PANTOPRAZOLE 40 MG TABLET PO SCH (09:19)
[2021-03-03] MEDS: FERROUS SULFATE 325 MG TABLET PO SCH ×2 (09:19→16:40)
[2021-03-03] MEDS: metroNIDAZOLE INJ 500 MG/100 ML PREMIX IV SCH (09:20)
[2021-03-03] MEDS: SODIUM CHLORIDE 0.9% 1,000 ML IV SCH (10:40)
[2021-03-03] MEDS: INSULIN LISPRO 100 UNIT/ML SUBCUT SCH ×4 (10:41→20:00)
[2021-03-03] MEDS ORDERED: AZITHROMYCIN 250 MG TABLET PO ONE (15:20)
[2021-03-03] MEDS: cefTRIAXone 1,000 MG in SODIUM CHLORIDE 0.9% 100 ML IV SCH (20:35)
[2021-03-04] MEDS: oxyCODONE IR 5 MG TABLET PO PRN ×2 (03:30→09:41)
[2021-03-04] MEDS: FONDAPARINUX 2.5 MG/0.5 ML SYRINGE SUBCUT SCH (04:32)
[2021-03-04] MEDS: ONDANSETRON 4 MG/2 ML VIAL IV PRN (05:15)
[2021-03-04 05:49] LABS: Basophils # 0.1 10*3/uL (0.0-0.2); Basophils % 0.6 % (0.0-0.8); Eosinophils # 0.3 10*3/uL (0.0-0.87); Eosinophils % 1.4 % (0.00-10.9); Hematocrit 29.1 VOL% (35.7-47.0); Hemoglobin 8.7 GM/DL (12.0-16.0); Immature Granulocytes % 1.2 %; Immature Granulocytes Absolute 0.23 #; Lymphocytes # 1.4 10*3/uL (1.4-4.0); Lymphocytes % 7.5 % (21.3-54.2); Mean Corpuscular HGB Conc 29.9 GM/DL (32-36); Mean Corpuscular Volume 99.7 FL (87-102); Mean Platelet Volume 8.8 FL (9.6-12.0); Monocytes % 18.5 % (1.7-12.7); Neutrophils % 70.8 % (38.7-73.9); Platelet Count 126 T/CUMM (130-400); Red Blood Count 2.92 MC/CUMM (3.8-5.5)
[2021-03-04 06:13] LABS: Hypochromia 1+; Lymphocytes 6 % (20-55); Metamyelocytes 1 %; Microcytosis 1+; Ovalocytes Few; Platelet Estimate Adequate; Segmented Neutrophils 86 % (50-85); Total Cells Counted 100
[2021-03-04 06:31] LABS: Albumin 2.1 G/DL (3.4-5.0); Bilirubin,Total 2.7 MG/DL (0.20-1.00); Calcium 7.6 MG/DL (8.5-10.1); Osmolality,Calculated 264.8 MOS/KG (273-304); Total Protein 5.5 G/DL (6.4-8.2)
[2021-03-04] MEDS: INSULIN LISPRO 100 UNIT/ML SUBCUT SCH ×4 (08:30→20:10)
[2021-03-04] MEDS: RIFAXIMIN 550 MG TABLET PO SCH ×2 (09:40→20:31)
[2021-03-04] MEDS: CHOLECALCIFEROL 1,000 UNIT TABLET PO SCH (09:40)
[2021-03-04] MEDS: DOCUSATE SODIUM 100 MG CAPSULE PO SCH ×2 (09:40→20:31)
[2021-03-04] MEDS: buPROPion 75 MG TABLET PO SCH (09:40)
[2021-03-04] MEDS: AZITHROMYCIN 250 MG TABLET PO SCH (09:40)
[2021-03-04] MEDS: LACTULOSE 20 GM/30 ML UDCUP PO SCH ×2 (09:40→20:31)
[2021-03-04] MEDS: PANTOPRAZOLE 40 MG TABLET PO SCH (09:40)
[2021-03-04] MEDS: SODIUM CHLORIDE 0.9% 1,000 ML IV SCH (09:41)
[2021-03-04] MEDS: FERROUS SULFATE 325 MG TABLET PO SCH ×2 (12:24→16:58)
[2021-03-04] MEDS: cefTRIAXone 1,000 MG in SODIUM CHLORIDE 0.9% 100 ML IV SCH (20:31)
[2021-03-05] MEDS: ONDANSETRON 4 MG/2 ML VIAL IV PRN ×4 (00:17→15:13)
[2021-03-05] MEDS: oxyCODONE IR 5 MG TABLET PO PRN ×2 (00:17→19:31)
[2021-03-05] MEDS: FONDAPARINUX 2.5 MG/0.5 ML SYRINGE SUBCUT SCH (04:30)
[2021-03-05 05:04] LABS: Basophils # 0.1 10*3/uL (0.0-0.2); Basophils % 0.4 % (0.0-0.8); Eosinophils # 0.2 10*3/uL (0.0-0.87); Eosinophils % 0.8 % (0.00-10.9); Hemoglobin 8.6 GM/DL (12.0-16.0); Immature Granulocytes % 1.3 %; Immature Granulocytes Absolute 0.29 #; Lymphocytes # 1.4 10*3/uL (1.4-4.0); Lymphocytes % 6.1 % (21.3-54.2); Mean Corpuscular HGB Conc 33.1 GM/DL (32-36); Mean Corpuscular Volume 91.9 FL (87-102); Mean Platelet Volume 9.4 FL (9.6-12.0); Monocytes % 17.7 % (1.7-12.7); Neutrophils % 73.7 % (38.7-73.9); Platelet Count 130 T/CUMM (130-400); Red Blood Count 2.83 MC/CUMM (3.8-5.5); Red Cell Distribution Width 16.1 % (9.3-17.3); White Blood Count 22.5 T/CUMM (4-12)
[2021-03-05 05:36] LABS: Calcium 7.7 MG/DL (8.5-10.1); Osmolality,Calculated 259.2 MOS/KG (273-304); Potassium 4.1 MMOL/L (3.5-5.1); Total Protein 5.8 G/DL (6.4-8.2)
[2021-03-05 05:55] LABS: Lymphocytes 2 % (20-55); Segmented Neutrophils 84 % (50-85); Total Cells Counted 100
[2021-03-05 05:56] LABS: Hypochromia Slight; Microcytosis 1+; Ovalocytes Slight; Platelet Estimate Adequate
[2021-03-05] MEDS: INSULIN LISPRO 100 UNIT/ML SUBCUT SCH ×4 (07:14→22:31)
[2021-03-05] MEDS: HYDROmorphone 2 MG/1 ML VIAL IV PRN (11:08)
[2021-03-05] MEDS: CHOLECALCIFEROL 1,000 UNIT TABLET PO SCH (11:09)
[2021-03-05] MEDS: buPROPion 75 MG TABLET PO SCH (11:09)
[2021-03-05] MEDS: PANTOPRAZOLE 40 MG TABLET PO SCH (11:10)
[2021-03-05] MEDS: DOCUSATE SODIUM 100 MG CAPSULE PO SCH ×2 (11:10→20:44)
[2021-03-05] MEDS: RIFAXIMIN 550 MG TABLET PO SCH ×2 (11:10→20:44)
[2021-03-05] MEDS: FERROUS SULFATE 325 MG TABLET PO SCH ×2 (11:10→17:30)
[2021-03-05] MEDS: AZITHROMYCIN 250 MG TABLET PO SCH (11:10)
[2021-03-05] MEDS: LACTULOSE 20 GM/30 ML UDCUP PO SCH ×2 (11:54→20:44)
[2021-03-05] MEDS ORDERED: FUROSEMIDE 40 MG/4 ML VIAL IV ONE (11:56)
[2021-03-05] MEDS ORDERED: ONDANSETRON 4 MG/2 ML VIAL IV ONE (18:50)
[2021-03-05] MEDS: cefTRIAXone 1,000 MG in SODIUM CHLORIDE 0.9% 100 ML IV SCH (20:45)
[2021-03-06] MEDS: ONDANSETRON 4 MG/2 ML VIAL IV PRN ×2 (01:50→07:39)
[2021-03-06] MEDS: oxyCODONE IR 5 MG TABLET PO PRN (01:56)
[2021-03-06] MEDS: ALBUTEROL/IPRATROPIUM 3 ML NEB RESP TX PRN ×2 (02:45→19:54)
[2021-03-06 05:54] LABS: Basophils # 0.1 10*3/uL (0.0-0.2); Basophils % 0.3 % (0.0-0.8); Eosinophils # 0.1 10*3/uL (0.0-0.87); Eosinophils % 0.1 % (0.00-10.9); Hematocrit 28.2 VOL% (35.7-47.0); Hemoglobin 9.2 GM/DL (12.0-16.0); Immature Granulocytes % 2.8 %; Immature Granulocytes Absolute 0.99 #; Lymphocytes # 1.4 10*3/uL (1.4-4.0); Lymphocytes % 3.9 % (21.3-54.2); Mean Corpuscular HGB Conc 32.6 GM/DL (32-36); Mean Corpuscular Volume 92.8 FL (87-102); Mean Platelet Volume 8.9 FL (9.6-12.0); Monocytes % 15.2 % (1.7-12.7); Neutrophils % 77.7 % (38.7-73.9); Platelet Count 207 T/CUMM (130-400); Red Blood Count 3.04 MC/CUMM (3.8-5.5); Red Cell Distribution Width 16.8 % (9.3-17.3)
[2021-03-06 06:04] LABS: INR 1.9
[2021-03-06 06:17] LABS: Albumin 2.1 G/DL (3.4-5.0); Band Neutrophils 3 % (0-10); Bilirubin,Total 3.9 MG/DL (0.20-1.00); Calcium 8.5 MG/DL (8.5-10.1); Hypochromia 1+; Microcytosis 1+; Osmolality,Calculated 263.4 MOS/KG (273-304); Platelet Estimate Adequate; Potassium 4.2 MMOL/L (3.5-5.1); Segmented Neutrophils 89 % (50-85); Total Cells Counted 100
[2021-03-06] MEDS: INSULIN LISPRO 100 UNIT/ML SUBCUT SCH ×4 (06:46→22:31)
[2021-03-06] MEDS: FERROUS SULFATE 325 MG TABLET PO SCH ×2 (08:02→17:14)
[2021-03-06] MEDS ORDERED: SODIUM CHLORIDE 0.9% 1,000 ML IV PRN (08:44)
[2021-03-06] MEDS: CHOLECALCIFEROL 1,000 UNIT TABLET PO SCH (09:25)
[2021-03-06] MEDS: RIFAXIMIN 550 MG TABLET PO SCH ×2 (09:25→21:00)
[2021-03-06] MEDS: AZITHROMYCIN 250 MG TABLET PO SCH (09:25)
[2021-03-06] MEDS: PANTOPRAZOLE 40 MG TABLET PO SCH (09:25)
[2021-03-06] MEDS: buPROPion 75 MG TABLET PO SCH (09:25)
[2021-03-06] MEDS: DOCUSATE SODIUM 100 MG CAPSULE PO SCH ×2 (09:25→21:00)
[2021-03-06] MEDS: LACTULOSE 20 GM/30 ML UDCUP PO SCH ×2 (09:25→21:00)
[2021-03-06] MEDS ORDERED: PHYTONADIONE 5 MG/5 ML ORAL.SYR PO ONE (09:30)
[2021-03-06 13:23] LABS: INR 1.5; PT Patient Result 16.7 SECS (10.5-12.0)
[2021-03-06] MEDS ORDERED: FUROSEMIDE 40 MG/4 ML VIAL IV ONE (14:30)
[2021-03-06 16:40] LABS: Glucose,Pleural Fluid 121 MG/DL; LDH,Body Fluid 61 U/L; Total Protein,Body Fluid < 1.0 G/DL
[2021-03-06] MEDS: LEVOFLOXACIN INJ 500 MG/100 ML PREMIX IV SCH (17:13)
[2021-03-06 17:21] LABS: Eosinophils,Pleural Fluid 2 %; Lymphocytes,Pleural Fluid 14 %; Monocytes,Pleural Fluid 13 %; Neutrophils,Pleural Fluid 71 %; RBC,Pleural Fluid 9351 T/CUMM
[2021-03-06] MEDS: HYDROmorphone 2 MG/1 ML VIAL IV PRN (23:29)
[2021-03-07] MEDS: ONDANSETRON 4 MG/2 ML VIAL IV PRN ×3 (03:32→22:57)
[2021-03-07] MEDS: FONDAPARINUX 2.5 MG/0.5 ML SYRINGE SUBCUT SCH (06:02)
[2021-03-07 06:26] LABS: Basophils % 0.2 % (0.0-0.8); Eosinophils # 0.4 10*3/uL (0.0-0.87); Hemoglobin 7.8 GM/DL (12.0-16.0); Immature Granulocytes % 1.9 %; Immature Granulocytes Absolute 0.38 #; Lymphocytes # 1.7 10*3/uL (1.4-4.0); Lymphocytes % 8.2 % (21.3-54.2); Mean Corpuscular HGB Conc 32.5 GM/DL (32-36); Mean Corpuscular Volume 93.4 FL (87-102); Mean Platelet Volume 9.1 FL (9.6-12.0); Monocytes % 12.5 % (1.7-12.7); NRBC # 0.04 10*3/uL; Neutrophils % 75.2 % (38.7-73.9); Platelet Count 120 T/CUMM (130-400); Red Blood Count 2.57 MC/CUMM (3.8-5.5); Red Cell Distribution Width 17.1 % (9.3-17.3); White Blood Count 20.3 T/CUMM (4-12)
[2021-03-07 06:41] LABS: Albumin 1.9 G/DL (3.4-5.0); Bilirubin,Total 3.4 MG/DL (0.20-1.00); Calcium 8.7 MG/DL (8.5-10.1); Osmolality,Calculated 270.8 MOS/KG (273-304); Potassium 4.2 MMOL/L (3.5-5.1); Total Protein 5.3 G/DL (6.4-8.2)
[2021-03-07 06:47] LABS: Hypochromia 1+; Lymphocytes 3 % (20-55); Microcytosis 1+; Platelet Estimate Normal; Segmented Neutrophils 87 % (50-85); Total Cells Counted 100
[2021-03-07] MEDS: INSULIN LISPRO 100 UNIT/ML SUBCUT SCH ×4 (07:37→21:05)
[2021-03-07] MEDS: HYDROmorphone 2 MG/1 ML VIAL IV PRN ×3 (07:52→22:58)
[2021-03-07 09:22] LABS: Basophils % 0.2 % (0.0-0.8); Eosinophils # 0.4 10*3/uL (0.0-0.87); Hematocrit 26.1 VOL% (35.7-47.0); Hemoglobin 8.5 GM/DL (12.0-16.0); Immature Granulocytes % 2.4 %; Immature Granulocytes Absolute 0.51 #; Lymphocytes # 1.5 10*3/uL (1.4-4.0); Lymphocytes % 6.9 % (21.3-54.2); Mean Corpuscular HGB Conc 32.6 GM/DL (32-36); Mean Corpuscular Volume 93.5 FL (87-102); Monocytes % 12.2 % (1.7-12.7); Neutrophils % 76.3 % (38.7-73.9); Platelet Count 146 T/CUMM (130-400); Red Blood Count 2.79 MC/CUMM (3.8-5.5); Red Cell Distribution Width 17.3 % (9.3-17.3); White Blood Count 21.3 T/CUMM (4-12)
[2021-03-07] MEDS: RIFAXIMIN 550 MG TABLET PO SCH ×2 (09:39→21:00)
[2021-03-07] MEDS: buPROPion 75 MG TABLET PO SCH (09:40)
[2021-03-07] MEDS: PANTOPRAZOLE 40 MG TABLET PO SCH (09:40)
[2021-03-07] MEDS: DOCUSATE SODIUM 100 MG CAPSULE PO SCH ×2 (09:40→21:04)
[2021-03-07] MEDS: LACTULOSE 20 GM/30 ML UDCUP PO SCH ×2 (09:40→21:04)
[2021-03-07] MEDS: FERROUS SULFATE 325 MG TABLET PO SCH ×2 (09:40→17:34)
[2021-03-07] MEDS: CHOLECALCIFEROL 1,000 UNIT TABLET PO SCH (09:40)
[2021-03-07 09:59] LABS: Hypochromia 1+; Lymphocytes 4 % (20-55); Microcytosis 1+; Platelet Estimate Adequate; Segmented Neutrophils 88 % (50-85); Total Cells Counted 100
[2021-03-07] MEDS: ALBUTEROL/IPRATROPIUM 3 ML NEB RESP TX SCH ×3 (14:25→23:56)
[2021-03-07] MEDS: methylPREDNISolone SOD SUC 40 MG/1 ML VIAL IV SCH ×2 (15:43→21:00)
[2021-03-07] MEDS: LEVOFLOXACIN INJ 500 MG/100 ML PREMIX IV SCH (18:06)
[2021-03-07] MEDS ORDERED: cefTRIAXone 1,000 MG in SODIUM CHLORIDE 0.9% 100 ML IV SCH (21:00)
[2021-03-08] MEDS: ALBUTEROL/IPRATROPIUM 3 ML NEB RESP TX SCH ×4 (02:54→15:09)
[2021-03-08] MEDS: HYDROmorphone 2 MG/1 ML VIAL IV PRN ×3 (05:12→15:27)
[2021-03-08] MEDS: methylPREDNISolone SOD SUC 40 MG/1 ML VIAL IV SCH ×2 (05:12→15:26)
[2021-03-08] MEDS: FONDAPARINUX 2.5 MG/0.5 ML SYRINGE SUBCUT SCH (05:12)
[2021-03-08 07:46] LABS: Albumin 1.9 G/DL (3.4-5.0); Bilirubin,Total 3.3 MG/DL (0.20-1.00); Calcium 9.1 MG/DL (8.5-10.1); Osmolality,Calculated 274.1 MOS/KG (273-304); Potassium 5.5 MMOL/L (3.5-5.1); Total Protein 5.5 G/DL (6.4-8.2)
[2021-03-08] MEDS: INSULIN LISPRO 100 UNIT/ML SUBCUT SCH ×3 (08:58→15:45)
[2021-03-08] MEDS: DOCUSATE SODIUM 100 MG CAPSULE PO SCH (08:59)
[2021-03-08] MEDS: SPIRONOLACTONE 100 MG TABLET PO SCH (08:59)
[2021-03-08] MEDS: FERROUS SULFATE 325 MG TABLET PO SCH ×2 (08:59→16:09)
[2021-03-08] MEDS: CHOLECALCIFEROL 1,000 UNIT TABLET PO SCH (08:59)
[2021-03-08] MEDS: buPROPion 75 MG TABLET PO SCH (08:59)
[2021-03-08] MEDS: LACTULOSE 20 GM/30 ML UDCUP PO SCH (08:59)
[2021-03-08] MEDS: RIFAXIMIN 550 MG TABLET PO SCH (08:59)
[2021-03-08] MEDS: PANTOPRAZOLE 40 MG TABLET PO SCH (08:59)
[2021-03-08] MEDS ORDERED: FUROSEMIDE 40 MG/4 ML VIAL IV SCH (09:00)
[2021-03-08 15:55] VITALS: BP 95/36
[2021-03-08] MEDS: LEVOFLOXACIN INJ 500 MG/100 ML PREMIX IV SCH (16:09)
== END 2021-03-08 18:10 | disposition hospice, home (50) | DRG 956 ==
LOC: EDBD → EDUNIT# → N.ED 17:32 → SUATTDRO 20:27 → N.EDINP 20:27 → N.3E 22:21
PROVIDERS: ADMIT Internal Medicine; ATTEND Internal Medicine